=== PATIENT | male | born 1980 ===

== ENCOUNTER 2022-05-05 17:48 | Outpatient (CLI) | payer OTHER, SELFPAY ==
[2022-05-15 23:32] LABS: CF Result NEGATIVE (NEGATIVE); Ethnicity NG
== END 2022-05-05 17:49 | disposition home or self-care (01) ==
LOC: ANHLAB 17:59
PROVIDERS: Visit Provider Student in an Organized Health Care Education/Training Program
DX: Z14.1 Cystic fibrosis carrier (principal)
CPT/HCPCS: 36415; 81220